=== PATIENT | female | born 1990 | race African-American/Black ===

== ENCOUNTER 2018-07-05 21:03 | Emergency (ER) | payer OTHER ==
--- NOTE | 2018-07-05 21:07 | PDOC ---
History of Present Illness - General Stated Complaint: BACK PAIN Time Seen by Provider: 07/05/18 21:06 - History of Present Illness Initial Comments: 27yo F with no significant past medical history complaining of lower back pain. Patient reports that she was picking up a toy from the ground and as she stood straight, felt a sharp pain in her back. Immediately after, she felt an abnormal sensation in her upper and lower extremities, but is not currently endorsing so. The pain is rated at 10/10 when she stands, moves, or sits and rated 5/10 when she stay stills. Patient states that laying on her stomach is the most comfortable position for her. Patient has had upper back since March for which physical therapy was recommended. She reports that she tolerates this upper back pain with tylenol at home. Denies saddle anesthesia, pain shooting down her legs, or urinary/fecal incontinence. No fever, chills, or night sweats. Past History - Past Medical History Allergies/Adverse Reactions: Allergies Allergy/AdvReac Type Severity Reaction Status Date / Time No Known Allergies Allergy Verified 07/05/18 21:59 Home Medications: Ambulatory Orders Ibuprofen [Motrin -] 600 mg PO TID #21 tablet 07/05/18 Review of Systems - Review of Systems Comments:: Constitutional: no fever, no chills HEENT: no throat pain, no dysphagia Cardiovascular: no chest pain, no palpitations Respiratory: no cough, no shortness of breath Gastrointestinal: no abdominal pain, no nausea, no vomiting, no diarrhea, no constipation Genitourinary: +dysuria, no frequency Musculoskeletal: +back pain, no myalgia Skin: no rash, no itching Neurologic: no headache, no dizziness *Physical Exam - Physical Exam Comments: General: Awake, alert, and fully oriented, in no acute distress Head: No signs of trauma Eyes: EOMI, sclera anicteric ENT: Moist mucus membranes Neck: Normal ROM, supple Lungs: Lungs clear, Normal breath sounds Cardio: Regular rhythm, S1 and S2 present Abdomen: Soft, nontender. No guarding, no rebound, no masses Extremities: Normal range of motion, Distal pulses present SKIN: Warm, Dry, normal turgor Neurologic: Cranial nerves II through XII grossly intact. Normal speech Medical Decision Making - Medical Decision Making 27yo F with no significant past medical history complaining of lower back pain. -U preg, UA and UCx (as patient reported dysuria two days ago) -Imaging once Upreg is negative -Patient is reluctant to take medicine by mouth due to side effects. Lidocaine patch ordered 07/05/18 21:09 Patient reports feeling better with the lidocaine patch. Upreg negative CT Lumbar Spine ordered Toradol IM ordered 07/05/18 22:53 Patient reporting some palliation of her pain. CT lumbar spine negative for acute pathology. Referred to orthopedics. Patient discharged. *DC/Admit/Observation/Transfer Diagnosis at time of Disposition: Back pain - Discharge Dispostion Disposition: HOME Condition at time of disposition: Stable - Prescriptions Prescriptions: Ibuprofen [Motrin -] 600 mg PO TID #21 tablet - Referrals Referrals: Steph Chirinos [Primary Care Provider] - Siddharth Nicole MD [Staff Physician] - - Patient Instructions Printed Discharge Instructions: DI for Low Back Pain Additional Instructions: You came to the ED for back pain. Imaging did not show acute pathology. It is important to follow up with your primary care doctor this week to discuss this visit and further assess your symptoms. Call and make an appointment. Your care is not complete until you do so. We have referred you to an orthopedic technician. Call and make an appointment at the number provided. You can take tylenol at home for your pain. Follow the instructions on the medication bottle. Immediate medical attention is required if you have back pain and : numbness in the genital or rectal area, loss of bowel or bladder control, difficulty with urination; fever, unexplained weight loss, or other signs of illness or infection. If you think you are having an emergency, call for emergency medical services or present to the emergency department right away. - Post Discharge Activity Forms/Work/School Notes: Back to Work
[2018-07-05 21:24] VITALS: BP 144/88; PULSE 94; TEMP 97.6; BMI 28.3
--- NOTE | 2018-07-05 21:36 | PDOC ---
Attending Attestation - HPI HPI: 07/05/18 21:55 The patient is a 27 year old female, with no significant PMH who presents to the emergency department with back pain today. 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 Patient reports she has been having a sharp pain since, described as a 10/10 in severity and alleviated by lying on her stomach. Patient endorses some urinary incontinence earlier. Patient has also been experiencing tingling sensation in her upper and lower extremities. The patient denies chest pain, shortness of breath, headache and dizziness. Denies fever, chills, nausea, vomit, diarrhea and constipation. Denies dysuria, frequency, urgency and hematuria. Allergies: NKA Past surgical history: None reported. Social history: No reported alcohol, drug or cigarette use. - Physicial Exam PE: 07/05/18 22:36 ADULT EXAM GENERAL: Awake, alert, and fully oriented, in no acute distress HEAD: No signs of trauma EYES: PERRLA, EOMI, sclera anicteric, conjunctiva clear ENT: Auricles normal inspection, hearing grossly normal, nares patent, oropharynx clear without exudates. Moist mucosa NECK: Normal ROM, supple, no lymphadenopathy, JVD, or masses LUNGS: Breath sounds equal, clear to auscultation bilaterally. No wheezes, and no crackles HEART: Regular rate and rhythm, normal S1 and S2, no murmurs, rubs or gallops ABDOMEN: Soft, nontender, normoactive bowel sounds. No guarding, no rebound. No masses : Perineal sensation is normal. EXTREMITIES: Normal range of motion, no edema. No clubbing or cyanosis. No cords , erythema, or tenderness NEUROLOGICAL: Cranial nerves II through XII grossly intact. Normal speech, normal gait SKIN: Warm, Dry, normal turgor, no rashes or lesions noted. <Amber Cullen - Last Filed: 07/05/18 23:44> - Resident Resident Name: Anahi Dobbins - ED Attending Attestation I have performed the following: I have examined & evaluated the patient, The case was reviewed & discussed with the resident, I agree w/resident's findings & plan - Medical Decision Making 07/05/18 23:45 Patient Name: DAVID CATHERINE THIS IS A PRELIMINARY REPORT FROM [facility]AG[facility] CONTRACTING ANALYST DATE OF SERVICE: 2018-07-05 22:51:15 IMAGES: 340 EXAM: LUMBAR SPINE CT W/O CONTRAST HISTORY: Back pain COMPARISON: None. FINDINGS: No fracture or subluxation. No suspicious bone lesions. No significant disc pathology. The central canal and neural foramina are patent throughout the lumbar spine. IMPRESSION: Normal exam. 07/05/18 23:45 Pt will be discharged with motrins. <Apple Castaneda - Last Filed: 07/05/18 23:45>
[2018-07-05] MEDS ORDERED: LIDOCAINE 5% TOPICAL PATCH TP ONE (21:55)
[2018-07-05 22:08] LABS: URINE APPEARANCE CLEAR; URINE BILIRUBIN NEGATIVE (<2.0 mg/dL); URINE COLOR STRAW; URINE GLUCOSE (UA) NEGATIVE (NEGATIVE); URINE KETONE NEGATIVE (NEGATIVE); URINE LEUK ESTERASE 1+ (NEGATIVE); URINE NITRITE NEGATIVE (NEGATIVE); URINE PROTEIN NEGATIVE (NEGATIVE); URINE UROBILINOGEN NEGATIVE mg/dL (0.2-1.0)
[2018-07-05] MEDS ORDERED: LIDOCAINE 5% TOPICAL PATCH ONE (22:10)
[2018-07-05 22:11] LABS: EPI CELLS RARE /HPF (FEW); URINE BACTERIA RARE /hpf (NONE SEEN); URINE MUCUS RARE
[2018-07-05] MEDS ORDERED: KETOROLAC TROMETHAMINE 60 MG/2 ML VIAL IM ONE (22:35)
[2018-07-05] MEDS ORDERED: KETOROLAC TROMETHAMINE 60 MG/2 ML VIAL ONE (23:32)
[2018-07-06] MEDS ORDERED: LIDOCAINE PATCH REMOVAL MC ONE (10:00)
== END 2018-07-06 00:09 | disposition home or self-care (01) ==
LOC: JER 21:03
PROC: 3E0233Z Introduction of Anti-inflammatory into Muscle, Percutaneous Approach (ICD-10-PCS; principal; 2018-07-05)
DX: M54.5 Low back pain (principal); X50.1XXA Overexertion from prolonged static or awkward postures, initial encounter; Y93.89 Activity, other specified; Y92.038 Other place in apartment as the place of occurrence of the external cause; Y99.8 Other external cause status
CPT/HCPCS: 72131-TC; 81003; 81015; 84703; 87086; 96372; 99283-25

== ENCOUNTER 2018-08-20 11:55 | Emergency (ER) | payer OTHER ==
[2018-08-20 12:05] VITALS: BP 143/86; PULSE 75; TEMP 97.9; BMI 33.7
[2018-08-20] MEDS ORDERED: MAG HYDROX/AL HYDROX/SIMETH 30 ML UNIT-DOSE CUP PO ONE (12:41)
--- NOTE | 2018-08-20 12:43 | PDOC ---
History of Present Illness - General Stated Complaint: CHEST PAIN Time Seen by Provider: 08/20/18 12:35 - History of Present Illness Initial Comments: 08/20/18 12:42 27-year-old female with a past medical history significant for acid reflux presents for ongoing symptoms over the last month. She was diagnosed with acid reflux placed on a course of Zantac which helped her but she did not like the way the medication made her feel so she discontinue the medication and her symptoms returned. She has no systemic symptoms. She describes a burning in her chest and epigastric area after meals. Past History - Past Medical History Allergies/Adverse Reactions: Allergies Allergy/AdvReac Type Severity Reaction Status Date / Time No Known Allergies Allergy Verified 08/20/18 12:05 Home Medications: Ambulatory Orders Pantoprazole Sodium [Protonix] 40 mg PO DAILY #20 tablet. 08/20/18 COPD: No - Immunization History Immunization Up to Date: No - Suicide/Smoking/Psychosocial Hx Smoking History: Never smoked Have you smoked in the past 12 months: No Information on smoking cessation initiated: No Hx Alcohol Use: No Drug/Substance Use Hx: No Substance Use Type: None Review of Systems - Review of Systems Constitutional: No: Fever Cardiac (ROS): Yes: See HPI, Chest Pain ABD/GI: Yes: Indigestion *Physical Exam - Vital Signs Last Vital Signs Temp Pulse Resp BP Pulse Ox 97.9 F 75 16 143/86 99 08/20/18 11:55 08/20/18 11:55 08/20/18 11:55 08/20/18 11:55 08/20/18 11:55 - Physical Exam Comments: 08/20/18 12:43 HEAD: NC/AT EYES: Conjuntiva clear Ears: Canals and TM's normal NOSE: No d/c THROAT: Moist mucous membrances, oral pharanx clear, uvula midline NECK: Supple without adenopathy CARDIAC: S1 S2 LUNGS: CTA Full and Equal breath sounds ABDOMEN: Soft NT ND MS: Full ROM in all joints without edema NEUROLOGIC: No gross sensory or motor deficits, NVID SKIN: Normal color and temperature no lesions or rashes Moderate Sedation - Procedure Monitoring Vital Signs: Procedure Monitoring Vital Signs Temperature 97.9 F 08/20/18 11:55 Pulse Rate 75 08/20/18 11:55 Respiratory Rate 16 08/20/18 11:55 Blood Pressure 143/86 12/26/18 11:55 O2 Sat by Pulse Oximetry (%) 99 08/20/18 11:55 Medical Decision Making - Medical Decision Making 08/20/18 12:43 EKG was reviewed with attending physician. EKG is normal 08/20/18 12:49 Symptoms improved with Mylanta. This is reflux. I will give her a prescription for Protonix (pt states no chance of , she does not have intercourse with men) and GI follow-up 08/20/18 12:50 *DC/Admit/Observation/Transfer Diagnosis at time of Disposition: GERD with esophagitis - Discharge Dispostion Disposition: HOME Condition at time of disposition: Stable Decision to Admit order: No - Referrals Referrals: Steph Chirinos [Primary Care Provider] - Octavio Arteaga MD [Staff Physician] - - Patient Instructions Printed Discharge Instructions: Fundoplication -- Open Surgery, DI for Gastroesophageal Reflux Disease (GERD) Additional Instructions: Please take the medication as directed its one tablet once daily. Return to the emergency room should symptoms worsen or go unresolved and follow up with gastroenterology in one to 2 days for further evaluation and treatment options. Avoid anti-inflammatories such as Advil Motrin Aleve and ibuprofen. If you need to take anything for any type of pain he may experience use Tylenol. - Post Discharge Activity
[2018-08-20] MEDS ORDERED: MAG HYDROX/AL HYDROX/SIMETH 30 ML UNIT-DOSE CUP ONE (12:44)
--- NOTE | 2018-08-20 16:46 | EKG ---
Test Reason : Blood Pressure : / mmHG Vent. Rate : 086 BPM Atrial Rate : 086 BPM P-R Int : 138 ms QRS Dur : 082 ms QT Int : 370 ms P-R-T Axes : 035 052 010 degrees QTc Int : 442 ms NORMAL SINUS RHYTHM NORMAL ECG NO PREVIOUS ECGS AVAILABLE Confirmed by MARKY ELIZABETH MD ([id number]) on 08/20/2018 4:46:20 PM Referred By: Confirmed By:MARKY ELIZABETH MD
== END 2018-08-20 12:59 | disposition home or self-care (01) ==
LOC: JERFT 11:55
DX: K21.0 Gastro-esophageal reflux disease with esophagitis (principal)
CPT/HCPCS: 93005; 93010; 99281-25

== ENCOUNTER 2019-01-11 14:12 | Emergency (ER) | payer OTHER ==
[2019-01-11 14:18] VITALS: BP 133/92; PULSE 77; TEMP 98.4; BMI 33.8
--- NOTE | 2019-01-11 15:11 | PDOC ---
History of Present Illness - General Chief Complaint: Facial Droop Stated Complaint: DIZZNESS/ MUSCLE SPASM Time Seen by Provider: 01/11/19 14:40 History Source: Patient Exam Limitations: No Limitations - History of Present Illness Initial Comments: 01/11/19 15:06 Patient states had an acute onset of left-sided facial pain, numbness and twitching to eyelid approximate 30-45 minutes ago which made her very dizzy. Has never had this incident before, denies fevers, denies any sinus drainage or URI symptoms. Has had no recent trauma or head injury, does not suffer from headaches or other neurologic problems. States the symptoms were so severe that she felt she needed to come to the emergency department for evaluation and states feels same. States her visual acuity is not what it was in the left eye from the right eye. 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 01/11/19 15:07 Timing/Duration: reports: 1/2 hour, 1 hour, increasing Severity: Yes: moderate Associated Symptoms: reports: muscle spasms (to left eye), vision changes. denies: confusion, fever/chills, slurred speech Past History - Travel Traveled outside of the country in the last 30 days: No Close contact w/someone who was outside of country & ill: No - Past Medical History Allergies/Adverse Reactions: Allergies Allergy/AdvReac Type Severity Reaction Status Date / Time No Known Allergies Allergy Verified 01/11/19 14:18 Home Medications: Ambulatory Orders Pantoprazole Sodium [Protonix] 40 mg PO DAILY #20 tablet. 08/20/18 COPD: No GI Disorders: Yes (gerd) Other medical history: cervical spine - Immunization History Immunization Up to Date: No - Suicide/Smoking/Psychosocial Hx Smoking History: Never smoked Have you smoked in the past 12 months: No Hx Alcohol Use: No Drug/Substance Use Hx: No Substance Use Type: None Review of Systems - Review of Systems Able to Perform ROS?: Yes Is the patient limited Turkmen proficient: Yes Constitutional: Yes: Symptoms Reported, See HPI, Malaise. No: Fever HEENTM: Yes: Symptoms Reported, See HPI, Eye Pain, Blurred Vision, Recent change in vision. No: Tearing Respiratory: Yes: See HPI. No: Symptoms reported, Cough Cardiac (ROS): No: Symptoms Reported ABD/GI: No: Symptoms Reported Musculoskeletal: Yes: See HPI. No: Symptoms Reported Neurological: Yes: Symptoms reported, See HPI, Headache, Tingling (to left face ) All Other Systems: Reviewed and Negative *Physical Exam - Vital Signs Last Vital Signs Temp Pulse Resp BP Pulse Ox 98.4 F 77 18 133/92 98 01/11/19 14:14 01/11/19 14:14 01/11/19 14:14 01/11/19 14:14 01/11/19 14:14 - Physical Exam General Appearance: Yes: Nourished, Appropriately Dressed, Mild Distress HEENT: positive: EOMI, GIUSEPPE, Normal ENT Inspection, TMs Normal (congested), Pharynx Normal, Pharyngeal Erythema, Nasal Congestion Neck: positive: Supple. negative: Tender Respiratory/Chest: positive: Lungs Clear, Normal Breath Sounds Gastrointestinal/Abdominal: positive: Soft. negative: Tender Musculoskeletal: positive: Normal Inspection. negative: CVA Tenderness Extremity: positive: Normal Capillary Refill, Normal Inspection Integumentary: positive: Normal Color, Dry, Warm Neurologic: positive: adult basic education teacher II-XII NML intact, Fully Oriented, Alert, Normal Mood/ Affect, Normal Response, Motor Strength 12/28 ED Treatment Course - LABORATORY CBC & Chemistry Diagram: 01/11/19 15:04 01/11/19 15:04 - RADIOLOGY Radiology Studies Ordered: Category Date Time Status HEAD CT WITHOUT CONTRAST [CT] Stat CT Scan 01/11/19 15:01 Ordered Progress Note - Progress Note Progress Note: Patient moved to [facility], and turnover given to GEO Flores, patient understands and laboratory work will be obtained and sent, as well as probable CAT scan when available to rule out any significant pathology. *DC/Admit/Observation/Transfer Diagnosis at time of Disposition: Left facial pressure and pain - Discharge Dispostion Disposition: HOME Condition at time of disposition: Stable - Referrals Referrals: Steph Chirinos [Primary Care Provider] - - Patient Instructions Printed Discharge Instructions: DI for Fatigue Additional Instructions: Your labs and CATS scan is normal. Your symptoms is likely from fatigue or sinusitis. Take tylenol as needed for pain or headache. Take anti-histamine which is claritin or singular as needed for facial pressure and use nasal spray as needed. Follow-up with referred neurologist if no improvement in 3 days. Come back to ED if worsening symptoms - Post Discharge Activity
[2019-01-11 15:14] LABS: BASO % 0.7 % (0-2.0); EOS % 1.9 % (0-4.5); HEMOGLOBIN 11.3 GM/dL (10.7-15.3); LYMPH % 29.6 % (8-40); MCH 25.9 pg (25.7-33.7); MCHC 31.4 g/dl (32.0-36.0); MEAN CELL VOLUME 82.4 fl (80-96); MEAN PLT VOLUME 8.9 fl (7.5-11.1); MONO % 7.1 % (3.8-10.2); NEUT % 60.7 % (42.8-82.8); PLATELET COUNT 252 K/MM3 (134-434); RBC 4.37 M/mm3 (3.60-5.2); RDW 13.9 % (11.6-15.6); WHITE BLOOD COUNT 7.7 K/mm3 (4.0-10.0)
[2019-01-11 15:15] LABS: EPI CELLS 0.8 /HPF (0-5/HPF); HCG,QUALITATIVE URINE Negative; PH,URINE 6.5 (5.0-8.0); URINE APPEARANCE CLEAR; URINE BILIRUBIN NEGATIVE (NEGATIVE); URINE CASTS 0 /lpf (0-8); URINE COLOR YELLOW; URINE GLUCOSE (UA) NEGATIVE (NEGATIVE); URINE KETONE NEGATIVE (NEGATIVE); URINE LEUK ESTERASE TRACE (NEGATIVE); URINE NITRITE NEGATIVE (NEGATIVE); URINE PROTEIN NEGATIVE (NEGATIVE); URINE RBC 3 /hpf (0-4); URINE UROBILINOGEN 0.2 mg/dL (0.2-1.0); URINE WBC 3 /hpf (0-5)
--- NOTE | 2019-01-11 15:27 | PDOC ---
*Physical Exam - Vital Signs Last Vital Signs Temp Pulse Resp BP Pulse Ox 98.4 F 77 18 133/92 98 01/11/19 14:14 01/11/19 14:14 01/11/19 14:14 01/11/19 14:14 01/11/19 14:14 - Physical Exam Comments: 01/11/19 15:21 GENERAL: Well developed, well nourished. Awake and alert. No acute distress. HEENT: Normocephalic, atraumatic. PERRLA, EOMI. No conjunctival pallor. Sclera are non-icteric. Moist mucous membranes. Oropharynx is clear. NECK: Supple. Full ROM. CARDIOVASCULAR: Regular rate and rhythm. No murmurs, rubs, or gallops. Distal pulses are 2+ and symmetric. PULMONARY: No evidence of respiratory distress. SKIN: Warm and dry. Normal capillary refill. No rashes. No jaundice. NEUROLOGICAL: Alert, awake, appropriate. Gait is normal without ataxia. no facial drooling. normal facial symmetry . frowning equally on b/l side of face. normal symmetric smile and eyebrow elevation. EOMI. PSYCHIATRIC: Cooperative. Good eye contact. Appropriate mood General Appearance: Yes: Nourished, Appropriately Dressed. No: Apparent Distress HEENT: positive: EOMI, GIUSEPPE, Normal ENT Inspection. negative: Pharynx Normal Neck: positive: Supple Respiratory/Chest: positive: Lungs Clear, Normal Breath Sounds. negative: Respiratory Distress, Accessory Muscle Use Cardiovascular: positive: Regular Rhythm, Regular Rate Musculoskeletal: positive: Normal Inspection Neurologic: positive: compliance reviewer II-XII NML intact, Fully Oriented, Alert, Normal Response. negative: EOM Palsy, Facial Droop ED Treatment Course - LABORATORY CBC & Chemistry Diagram: 01/11/19 15:04 01/11/19 15:04 - ADDITIONAL ORDERS Additional order review: Laboratory Results 01/11/19 14:59 Urine Color Yellow Urine Appearance Clear Urine pH 6.5 Ur Specific [place] 1.010 Urine Protein Negative Urine Glucose (UA) Negative Urine Ketones Negative Urine Blood 3+ H Urine Nitrite Negative Urine Bilirubin Negative Urine Urobilinogen 0.2 Ur Leukocyte Esterase Trace Urine WBC (Auto) 3 Urine RBC (Auto) 3 Urine Casts (Auto) 0 U Epithel Cells (Auto) 0.8 Urine Bacteria (Auto) 12.0 Urine HCG, Qual Negative 01/11/19 15:04 RBC 4.37 MCV 82.4 MCHC 31.4 L RDW 13.9 MPV 8.9 Neutrophils % 60.7 Lymphocytes % 29.6 Monocytes % 7.1 Eosinophils % 1.9 Basophils % 0.7 Medical Decision Making - Medical Decision Making 01/11/19 15:25 I assumed care of this 28-year-old female with no medical history present with complaint of feeling of left-sided facial drooling and tingling sensation since an hour ago. Patient reported intermittent headache with no headaches now. Patient described pressure in the left side of face. Denies nausea, vomiting but endorses intermittent lightheadedness but no dizziness now. Clinical exam unremarkable with no facial drooling and normal neuro exam. No evidence of Helms's palsy or neurological deficit on exam. CBC and chemistry labs and urine labs ordered from [facility]. Head CT without contrast ordered from previous provider. Symptoms likely fatigue versus sinusitis versus less likely neurogenic symptom. Treat based on lab and imaging results 01/11/19 15:54 CBC and urin labs wnl. head CT normal. Patient report started a new job and stressed. Symptoms likely fatigue and stable for discharge with strict follow-up *DC/Admit/Observation/Transfer Diagnosis at time of Disposition: Left facial pressure and pain - Discharge Dispostion Disposition: HOME Condition at time of disposition: Stable Decision to Admit order: No - Referrals Referrals: Steph Chirinos [Primary Care Provider] - - Patient Instructions Printed Discharge Instructions: DI for Fatigue Additional Instructions: Your labs and CATS scan is normal. Your symptoms is likely from fatigue or sinusitis. Take tylenol as needed for pain or headache. Take anti-histamine which is claritin or singular as needed for facial pressure and use nasal spray as needed. Follow-up with referred neurologist if no improvement in 3 days. Come back to ED if worsening symptoms - Post Discharge Activity
[2019-01-11 16:00] LABS: ALBUMIN 3.8 g/dl (3.4-5.0); BILIRUBIN,TOTAL 0.3 mg/dL (0.2-1); CALCIUM 9.2 mg/dL (8.5-10.1); CREATININE 0.7 mg/dL (0.55-1.3); TOT PROT 8.1 g/dl (6.4-8.2)
== END 2019-01-11 15:53 | disposition home or self-care (01) ==
LOC: JERFT 14:12 → JER 14:12
DX: R51 Headache (principal)
CPT/HCPCS: 36415; 70450-TC; 80053; 81003; 84703; 85025; 99282-25